=== PATIENT | female | born 1980 | race African-American/Black ===

== ENCOUNTER 2018-06-27 22:18 | Emergency (ER) | payer MEDICARE, MEDICAID ==
[~2018-06-27] VITALS: Ht 162.6 cm; Wt 66.2 kg
[2018-06-27 22:38] VITALS: BP 135/80
[2018-06-27] MEDS ORDERED: AUGMENTIN 875-1 EAC1 ORAL (22:56)
[2018-06-27] MEDS ORDERED: [UNRECOGNIZED DRUG - OTHER] RIGHT EYE (22:56)
--- NOTE | 2018-06-27 22:57 | Emergency Room Report ---
History of Present Illness General Chief Complaint: Eye Problems Source: Caregiver Present Illness HPI Is a 37-year-old female with history of MRCP. She presents with right facial swelling. Onset for about a day or 2. She was brought in by the hall supervisor. No trauma. No drainage. No fever or chills. History is limited on this patient because of her nonverbal state and mental retardation. Allergies: Coded Allergies: No Known Allergies (Unverified , 06/27/18) Patient History Past Medical History: see triage record, old chart reviewed Past Surgical History: other Pertinent Family History: none Social History: Denies: smoking Now: No Immunizations: other Reviewed Nursing Documentation: PMH: Agreed; PSxH: Agreed Review of Systems Eye: Reports: discharge; Denies: eye pain, blurred vision ENT: Denies: ear pain, nose congestion, throat swelling Respiratory: Denies: cough, shortness of breath Cardiovascular: Denies: chest pain, palpitations Gastrointestinal: Denies: abdominal pain, diarrhea, nausea, vomiting Musculoskeletal: Denies: back pain, joint pain Skin: Denies: rash Neurological: Denies: headache, numbness Endocrine: Denies: increased thirst, increased urine Hematologic/Lymphatic: Denies: easy bruising All Other Systems: negative except mentioned in HPI Physical Exam Vital Signs Date Time Temp Pulse Resp B/P (MAP) Pulse Ox O2 Delivery O2 Flow Rate FiO2 06/27/18 22:24 98.0 64 16 135/80 99 Room Air 98.1 vitals normal Sp02 EP Interpretation: reviewed, normal General Appearance: well appearing, no apparent distress, alert Head: normocephalic, atraumatic Eyes: right eye other - Right conjunctiva injected. Lower lid has significant edema. There is some discharge. There is some mild erythema. There is no proptosis. Patient appear to be moving the eye without any problem.; bilateral eye PERRL, bilateral eye EOMI ENT: hearing grossly normal, normal pharynx Neck: full range of motion, supple, no meningismus Respiratory: chest non-tender, lungs clear, normal breath sounds Cardiovascular #1: regular rate, rhythm, no murmur Gastrointestinal: normal bowel sounds, non tender, no mass, no organomegaly, no bruit, non-distended Musculoskeletal: back normal, gait/station normal, normal range of motion Psychiatric: mood/affect normal Skin: warm/dry Medical Decision Making Diagnostic Impression: Primary Impression: Preseptal cellulitis of right lower eyelid ER Course Patient with edema to the lower eyelid. This may be infection versus blocked tear duct. No evidence of orbital cellulitis. We'll discharge home with antibiotics. Last Vital Signs Date Time Temp Pulse Resp B/P (MAP) Pulse Ox O2 Delivery O2 Flow Rate FiO2 06/27/18 22:38 98.1 16 135/80 99 Room Air 98.1 06/27/18 22:24 64 Status: unchanged Disposition: HOME, SELF-CARE Condition: Stable Scripts Amoxicillin/Potassium Clav 875-125* (AUGMENTIN 875-125 TABLET*) 1 Each Tablet 1 TAB ORAL TWICE A DAY, #14 TAB Prov: VICKY KIDD M.D. 06/27/18 Bacitracin/Polymyxin (Gefhkj-Elyfq-Ivizfpy Eye Oint) 3.5 Gm Oint...g. 1 APPLIC RIGHT EYE TID, #3.5 APPLIC Prov: VICKY KIDD M.D. 06/27/18 Additional Instructions: Clean area with baby shampoo. Follow-up with your doctor in 2-3 days for recheck. Return if worse. VICKY KIDD M.D. Jun 27, 2018 22:57
[2018-06-27] MEDS ORDERED: Augmentin 875mg Tab ORAL ONE (23:00)
== END 2018-06-27 23:40 | disposition home or self-care (01) ==
LOC: EMR 23:39
DX: H00.032 Abscess of right lower eyelid (principal); F78 Other intellectual disabilities
CPT/HCPCS: 99283